=== PATIENT | female | born 1990 | race Caucasian/White ===

== ENCOUNTER 2017-01-14 03:40 | Inpatient (IN) | payer BC ==
[2017-01-14] MEDS ORDERED: Nalbuphine 10 MG/1 ML Vial IVPUSH PRN (03:58)
[2017-01-14] MEDS ORDERED: Carboprost Tromethamine 250 MCG/1 ML Amp IM PRN (03:58)
[2017-01-14] MEDS ORDERED: Methylergonovine 0.2 MG/1 ML Amp IM PRN ×2 (03:58→13:10)
[2017-01-14] MEDS ORDERED: Misoprostol 200 MCG Tab PO PRN (03:58)
[2017-01-14] MEDS ORDERED: Sodium Chloride 0.9% 10 ML Syringe FLUSH PRN (03:58)
[2017-01-14] MEDS ORDERED: Sodium Chloride 0.9% 2.5 ML Syringe FLUSH PRN (03:58)
[2017-01-14] MEDS ORDERED: Lidocaine 1% 50 ML MDV INJECT PRN (03:58)
[2017-01-14] MEDS ORDERED: Butorphanol 1 MG/ML SDV IVPUSH PRN (03:58)
[2017-01-14] MEDS ORDERED: Water For Irrigation,Sterile 1,000 ML Container IRR PRN (03:58)
[2017-01-14] MEDS ORDERED: Oxytocin/Lactated Ringers 30 UNIT/500 ML BAG IV SCH ×2 (04:00→08:45)
[2017-01-14] MEDS: Lactated Ringers 1,000 ML IV SCH ×4 (04:10→11:41)
[2017-01-14] MEDS ORDERED: Ropivacaine 0.2% 2 MG/ML 20 ML SDV ONE (05:03)
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
[2017-01-14] MEDS ORDERED: Terbutaline 1 MG/ML SDV SUBCUT PRN (08:37)
[2017-01-14] MEDS ORDERED: Benzocaine/Menthol 20%-0.5% Spray 78 GM Cannister TOP PRN (13:10)
[2017-01-14] MEDS ORDERED: Docusate Sodium 100 MG Cap PO PRN (13:10)
[2017-01-14] MEDS ORDERED: Ibuprofen 800 MG Tab PO PRN (13:10)
[2017-01-14] MEDS ORDERED: Bisacodyl 10 MG Supp RECTAL PRN (13:10)
[2017-01-14] MEDS ORDERED: oxyCODONE 5 MG Tab PO PRN (13:10)
[2017-01-14] MEDS ORDERED: Witch Hazel Medicated Pads 40/Jar TOP PRN (13:10)
[2017-01-14] MEDS ORDERED: Lanolin 100% Cream 7 GM Tube TOP PRN (13:10)
[2017-01-14] MEDS: Acetaminophen 500 MG Tab PO PRN ×2 (15:40→20:45)
--- NOTE | 2017-01-14 16:06 | PCM48HPAN ---
Post Anesthesia Note - EVALUATION WITHIN 48HRS OF ANESTHETIC Vital Signs in Normal Range: Yes Patient Participated in Evaluation: Yes Respiratory Function Stable: Yes Airway Patent: Yes Cardiovascular Function Stable: Yes Hydration Status Stable: Yes Pain Control Satisfactory: Yes Nausea and Vomiting Control Satisfactory: Yes Mental Status Recovered: Yes - COMMENTS/OBSERVATIONS Free Text/Narrative:: No apparent anesthesia complications.
--- NOTE | 2017-01-14 23:32 | OR ---
SURGEON: Ashly Vu M.D. DATE OF PROCEDURE: 01/14/2017 PREOPERATIVE DIAGNOSIS: A 40 and 3/7th week intrauterine , active spontaneous labor protracted. POSTOPERATIVE DIAGNOSIS: A 40 and 3/7th week intrauterine , active spontaneous labor protracted. PROCEDURE: Pitocin augmentation of labor, term spontaneous vaginal delivery. CASING RUNNER: Stas Carcamo MS4. ANESTHESIA: Epidural. ESTIMATED BLOOD LOSS: Less than 300 mL. FINDINGS: Live born female, score 8 and 9. Weight is pending at the time of dictation. Placenta was delivered spontaneously, Schultze intact with 3 vessels. Perineum intact. BRIEF HISTORY: This is a 26-year-old female she is G3, P2-0-0-2, she presents at 40 and 3/7th weeks' gestation in active spontaneous labor. She was 6 cm dilated at 6:30 a.m. She had artificial rupture of membranes, white meconium noted. 2 hours later, her cervix was unchanged, therefore Pitocin was initiated up to a maximum of 8 units/minute. Category 1 heart tones were noted throughout labor. She progressed to 9+ cm with a reducible lip. DESCRIPTION OF PROCEDURE: With the patient in dorsal lithotomy position, under adequate epidural analgesia, the lip was reduced. The patient began to push. The fetus was noted to be in the right occiput posterior position and gentle manual rotation was performed with a single contraction. The head was easily rotated to right occiput anterior position. She continued to push to a 3+ station. At this time, the table was set up and she pushed over another 3 contractions to a 5+ station, at which time the head was delivered spontaneously and atraumatically over the perineum with support with subsequent delivery of the infant's shoulders and body without any difficulty. The infant was cleaned and dried and handed to the mother [id number] in the presence of the nurse attending delivery. The was a liveborn female, 's 8 and 9. Weight is pending at the time of dictation. After the cord had ceased to pulsate it was doubly clamped and cut. Cord blood was collected for cord ABGs as well as routine cord blood sampling. The placenta was delivered spontaneously, Schultze intact with 3 vessels with Pitocin initiated after delivery of the infant to assist with delivery of the placenta. Upon inspection of the pelvis and perineum, there were no periurethral, vaginal sidewall, cervical, rectal, or perineal lacerations. EBL was less than 200 mL. There were no known complications. Mother and are in LDRP in good condition. SHAAN WHITLEY /[id number]
[2017-01-15 04:18] VITALS: BP 110/61
[2017-01-15] MEDS: Acetaminophen 500 MG Tab PO PRN ×2 (04:32→13:24)
--- NOTE | 2017-01-15 07:45 | PCM.PN ---
- General Info Date of Service: 01/15/17 Admission Dx/Problem (Free Text): Spontaneous onset of labor Subjective Update: This is a 26 year old female, G3 now P3, on day 1 after . Patient has decreasing non foul smelling lochia. Patient has had abdominal pain radiating down her legs but is now controlled with Tylenol. Patient is without problems. Pt has urinated without difficulty. Patient has not had a bowel movement since delivery. - Review of Systems Gastrointestinal: Reports: Abdominal Pain - Patient Data Vitals - Most Recent: Last Vital Signs Temp 36.2 C 01/15/17 04:00 Pulse 64 01/15/17 04:00 Resp 18 01/15/17 04:00 BP 110/61 01/15/17 04:00 Pulse Ox 96 01/15/17 04:00 Weight - Most Recent: 55.429 kg Lab Results Last 24 Hours: Laboratory Results - last 24 hr 01/15/17 Range/Units 04:53 Hgb 11.4 L (12.0-16.0) g/dL Hct 33.8 L (36.0-46.0) % Med Orders - Current: Current Medications Acetaminophen (Tylenol Extra Strength) 1,000 mg PO Q4H PRN PRN Reason: Pain Last Admin: 01/15/17 04:32 Dose: 1,000 mg Benzocaine/Menthol (Dermoplast Pain Relief 20%-0.5% Gary) 78 gm TOP ASDIRECTED PRN PRN Reason: Perineal Comfort Measure Bisacodyl (Dulcolax) 10 mg RECTAL .ONCE PRN PRN Reason: Constipation Docusate Sodium (Colace) 100 mg PO BID PRN PRN Reason: Constipation Emollient Ointment (Lansinoh Hpa) 0 gm TOP ASDIRECTED PRN PRN Reason: Sore Nipples Last Admin: 01/14/17 15:41 Dose: 1 applic Ibuprofen (Motrin) 800 mg PO Q6H PRN PRN Reason: Pain Methylergonovine Maleate (Methergine) 0.2 mg IM .ONCE PRN PRN Reason: Excessive Vaginal Bleeding Oxycodone HCl (Oxycodone) 5 mg PO Q2H PRN PRN Reason: Pain Witch Yamilex (Tucks) 1 pad TOP ASDIRECTED PRN PRN Reason: comfort care Discontinued Medications Butorphanol Tartrate (Stadol) 1 mg IVPUSH Q1H PRN PRN Reason: Pain Carboprost Tromethamine (Hemabate Ds) 250 mcg IM ASDIRECTED PRN PRN Reason: Post Hemorrhage Lactated Ringer's (Ringers, Lactated) 1,000 mls @ 150 mls/hr IV ASDIRECTED JOSE LUIS Last Admin: 01/14/17 11:41 Dose: 125 mls/hr Oxytocin/Lactated Ringer's (Pitocin In Lr 30 Units/500 Ml) 30 unit in 500 mls @ 250 mls/hr IV TITRATE JOSE LUIS PRN Reason: 250 MUNITS/MIN Stop: 01/14/17 05:59 Ropivacaine/Fentanyl/NS (Fentanyl 2 Mcg-Ropiv 0.2%-Ns) Confirm Administered Dose 100 mls @ as directed .ROUTE .[employer] ONE Stop: 01/14/17 05:04 Oxytocin/Lactated Ringer's (Pitocin In Lr 30 Units/500 Ml) 30 unit in 500 mls @ 2 mls/hr IV TITRATE JOSE LUIS; 2 MUNITS/MIN PRN Reason: Protocol Last Titration: 01/14/17 09:51 Dose: 6 munits/min, 6 mls/hr Lidocaine HCl (Xylocaine 1%) 50 ml INJECT .ONCE PRN PRN Reason: Laceration repair Methylergonovine Maleate (Methergine) 0.2 mg IM ASDIRECTED PRN PRN Reason: Post Hemorrhage Misoprostol (Cytotec) 200 mcg PO .ONCE PRN PRN Reason: Post Hemorrhage Nalbuphine HCl (Nubain) 10 mg IVPUSH Q1H PRN PRN Reason: Pain (severe 7-10) Ropivacaine (Naropin 0.2%) Confirm Administered Dose [facility] Stop: 01/14/17 05:04 Sodium Chloride (Saline Flush) 10 ml FLUSH ASDIRECTED PRN PRN Reason: Keep Vein Open Sodium Chloride (Saline Flush) 2.5 ml FLUSH ASDIRECTED PRN PRN Reason: Keep Vein Open Sterile Water (Sterile Water For Irrigation) 1,000 ml IRR ASDIRECTED PRN PRN Reason: delivery Terbutaline Sulfate (Brethine) 0.25 mg SUBCUT ASDIRECTED PRN PRN Reason: Tacysystole - Exam General: Alert, Oriented Lungs: Clear to Auscultation, Normal Respiratory Effort. No: Crackles, Rales, Rhonchi Cardiovascular: Regular Rate, Regular Rhythm, No Murmurs. No: Gallops, Rubs GI/Abdominal Exam: Normal Bowel Sounds (Uterus below umbilicus, tender, firm) Extremities: No Pedal Edema, Normal Capillary Refill - Problem List & Annotations (1) (normal spontaneous vaginal delivery) SNOMED Code(s): 13095593 Code(s): O80 - ENCOUNTER FOR FULL-TERM UNCOMPLICATED DELIVERY Status: Resolved Priority: High Current Visit: Yes Onset Date: ~01/14/17 - Problem List Review Problem List Initiated/Reviewed/Updated: Yes - Assessment Assessment:: day 1 S/P Afebrile, doing well without difficulty Pain adequately controlled Constipation consistent with PP day 1 - Plan Plan:: Continue to support Continue routine cares Constipation Colace 100mg PO bid prn Pain Tylenol 1000 mg PO q 6 hours prn Plan for discharge today. Followup appointment in 6 weeks
== END 2017-01-15 16:10 | disposition home or self-care (01) | DRG 560 ==
LOC: MW.OBCHECK 03:40 → MW.OB 03:42 → MW.OBCHECK 03:58 → MW.OB 03:58 → OBSVTOIN 12:55
PROVIDERS: ADMIT Obstetrics & Gynecology; ATTEND Obstetrics & Gynecology
PROC: 10E0XZZ Delivery of Products of Conception, External Approach (ICD-10-PCS; principal; 2017-01-14)
PROC: 10907ZC Drainage of Amniotic Fluid, Therapeutic from Products of Conception, Via Natural or Artificial Opening (ICD-10-PCS; 2017-01-14)
DX: O63.9 Long labor, unspecified (principal); Z3A.40 40 weeks gestation of pregnancy; Z37.0 Single live birth
CPT/HCPCS: 36415; 59025; 85014; 85018; 85027; 86850; 86900; 86901; A9270-GY; J7120

== ENCOUNTER 2023-03-04 20:58 | Emergency (ER) | payer BC ==
[2023-03-04] MEDS ORDERED: Ketorolac 30 MG/ML SDV IVPUSH ONE (21:45)
[2023-03-04 21:49] LABS: BASOPHILS ABSOLUTE AUTO 0.01 K/uL (0.00-0.20); BASOPHILS PERCENT AUTO 0.1 % (0.0-1.0); EOSINOPHILS ABSOLUTE AUTO 0.04 K/uL (0.00-0.45); EOSINOPHILS PERCENT AUTO 0.5 % (0.0-6.0); HEMATOCRIT 37.2 % (37.0-47.0); HEMOGLOBIN 12.8 g/dL (12.0-16.0); IMMATURE GRAN ABSOLUTE AUTO 0.02 K/uL (0.00-0.05); IMMATURE GRAN PERCENT AUTO 0.3 % (0.0-0.4); LYMPHOCYTES ABSOLUTE AUTO 0.98 K/uL (1.00-4.80); LYMPHOCYTES PERCENT AUTO 12.4 % (24.0-44.0); MEAN CORPUSCULAR HEMOGLOBIN 31.1 pg (28.0-32.0); MEAN CORPUSCULAR HGB CONC 34.4 g/dL (32.0-36.0); MEAN CORPUSCULAR VOLUME 90.5 fL (83.0-99.0); MEAN PLATELET VOLUME 9.7 fL (9.4-12.3); MONOCYTES ABSOLUTE AUTO 0.31 K/uL (0.00-0.80); MONOCYTES PERCENT AUTO 3.9 % (0.0-8.0); NEUTROPHILS ABSOLUTE AUTO 6.57 K/uL (1.80-7.70); NEUTROPHILS PERCENT AUTO 82.8 % (41.0-71.0); PLATELET COUNT,PLT 308 K/uL (150-400); RED BLOOD CELL COUNT 4.11 M/uL (4.10-5.30); WHITE BLOOD CELL COUNT,WBC 7.93 K/uL (3.9-11.3)
[2023-03-04 21:59] LABS: A/G RATIO 1.3 (0.9-1.6); ALBUMIN 4.1 g/dL (3.4-5.0); BILIRUBIN TOTAL 0.3 mg/dL (0.2-1.0); CALCIUM 9.1 mg/dL (8.5-10.1); CARBON DIOXIDE,CO2 29.7 mmol/L (21.0-32.0); EST CRCL DRUG DOSING (CG) 60.95 mL/min; PROTEIN TOTAL,TP 7.2 g/dL (6.4-8.2)
[2023-03-04 22:31] LABS: APPEARANCE,URINE CLEAR; BILIRUBIN,URINE NEGATIVE (NEGATIVE); COLOR,URINE YELLOW; GLUCOSE,URINE NEGATIVE (NEGATIVE); KETONES,URINE NEGATIVE (NEGATIVE); LEUKOCYTE ESTERASE,URINE NEGATIVE (NEGATIVE); NITRITE,URINE NEGATIVE (NEGATIVE); OCCULT BLOOD,URINE NEGATIVE (NEGATIVE); PROTEIN,URINE NEGATIVE (NEGATIVE); UROBILINOGEN,URINE 0.2 EU/dL (<2.0)
[2023-03-04 22:52] VITALS: BP 123/64; PULSE 78
== END 2023-03-04 22:51 | disposition home or self-care (01) ==
LOC: MW.ED 20:58
DX: R10.84 Generalized abdominal pain (principal); R10.10 Upper abdominal pain, unspecified
CPT/HCPCS: 36415; 80053; 81003; 81025; 83690; 85025; 96374; 99284; J1885

== ENCOUNTER 2023-10-21 17:38 | Emergency (ER) | payer BC ==
[2023-10-21] MEDS: Metoclopramide 10 MG/2 ML SDV IVPUSH ONE (18:49)
[2023-10-21] MEDS: Sodium Chloride 0.9% 1,000 ML IV ONE (18:49)
[2023-10-21 19:48] VITALS: BP 131/96; PULSE 62
== END 2023-10-21 19:48 | disposition home or self-care (01) ==
LOC: MW.ED 17:38
DX: K52.9 Noninfective gastroenteritis and colitis, unspecified (principal); E86.0 Dehydration; Z79.899 Other long term (current) drug therapy; Z75.8 Other problems related to medical facilities and other health care
CPT/HCPCS: 96361; 96374; 99283; J2765; J7030; 36415; 80053; 81003; 81025; 82150; 83690; 85025; 99284

== ENCOUNTER 2023-10-22 00:32 | Emergency (ER) | payer BC ==
[2023-10-22] MEDS: diphenhydrAMINE 50 MG/ML SDV IVPUSH ONE (00:52)
[2023-10-22] MEDS: Ondansetron 4 MG/2 ML SDV IVPUSH ONE (00:52)
[2023-10-22] MEDS: Sodium Chloride 0.9% 1,000 ML IV ONE (00:52)
[2023-10-22] MEDS: Iopamidol 755 MG/ML 500 ML Multipack Bottle IVPUSH ONE (01:46)
[2023-10-22] MEDS: Metoclopramide 10 MG/2 ML SDV IVPUSH ONE (02:00)
[2023-10-22 02:26] VITALS: BP 125/71; PULSE 60
== END 2023-10-22 02:27 | disposition home or self-care (01) ==
LOC: MW.ED 00:32
DX: R11.2 Nausea with vomiting, unspecified (principal); R19.7 Diarrhea, unspecified; Z79.899 Other long term (current) drug therapy; Z75.8 Other problems related to medical facilities and other health care
CPT/HCPCS: 74177; 96361; 96374; 96375; 99284; J1200; J2405; J2765; J7030; Q9967

== ENCOUNTER 2023-10-28 11:10 | Emergency (ER) | payer BC ==
[2023-10-28 11:59] LABS: HEMATOCRIT 41.4 % (37.0-47.0); HEMOGLOBIN 14.6 g/dL (12.0-16.0); IMMATURE GRAN ABSOLUTE AUTO 0.06 K/uL (0.00-0.05); IMMATURE GRAN PERCENT AUTO 0.4 % (0.0-0.4); LYMPHOCYTES ABSOLUTE AUTO 1.19 K/uL (1.00-4.80); LYMPHOCYTES PERCENT AUTO 8.8 % (24.0-44.0); MEAN CORPUSCULAR HEMOGLOBIN 32.2 pg (28.0-32.0); MEAN CORPUSCULAR HGB CONC 35.3 g/dL (32.0-36.0); MEAN CORPUSCULAR VOLUME 91.2 fL (83.0-99.0); MEAN PLATELET VOLUME 8.5 fL (9.4-12.3); MONOCYTES ABSOLUTE AUTO 0.63 K/uL (0.00-0.80); MONOCYTES PERCENT AUTO 4.7 % (0.0-8.0); NEUTROPHILS ABSOLUTE AUTO 11.61 K/uL (1.80-7.70); NEUTROPHILS PERCENT AUTO 86.1 % (41.0-71.0); PLATELET COUNT,PLT 338 K/uL (150-400); RED BLOOD CELL COUNT 4.54 M/uL (4.10-5.30); WHITE BLOOD CELL COUNT,WBC 13.49 K/uL (3.9-11.3)
[2023-10-28 12:19] LABS: A/G RATIO 1.2 (0.9-1.6); ALBUMIN 4.1 g/dL (3.4-5.0); BILIRUBIN TOTAL 0.4 mg/dL (0.2-1.0); CALCIUM 8.9 mg/dL (8.5-10.1); CARBON DIOXIDE,CO2 23.8 mmol/L (21.0-32.0); CREATININE 0.8 mg/dL (0.6-1.0); EST CRCL DRUG DOSING (CG) 75.48 mL/min; POTASSIUM,K 3.6 mmol/L (3.5-5.1); PROTEIN TOTAL,TP 7.4 g/dL (6.4-8.2)
[2023-10-28] MEDS: Albuterol/Ipratropium 3.0-0.5 MG/3 ML Neb Soln NEB ONE (12:44)
[2023-10-28] MEDS: Sodium Chloride 0.9% 1,000 ML IV SCH (12:44)
[2023-10-28] MEDS: Pantoprazole 40 MG in Sodium Chloride 0.9% 10 ML IVPUSH ONE (12:44)
[2023-10-28] MEDS: Ondansetron 4 MG/2 ML SDV IVPUSH ONE (12:44)
[2023-10-28] MEDS: Iopamidol 755 MG/ML 500 ML Multipack Bottle IVPUSH STA (13:31)
[2023-10-28] MEDS: Metoclopramide 10 MG/2 ML SDV IVPUSH ONE (13:33)
[2023-10-28] MEDS: diphenhydrAMINE 50 MG/ML SDV IVPUSH ONE (13:33)
[2023-10-28] MEDS: Sucralfate Suspension 1 GM/10 ML Cup PO ONE (14:53)
[2023-10-28] MEDS: Midazolam 1 MG/ML 2 ML SDV IVPUSH ONE (14:53)
[2023-10-28 15:32] VITALS: BP 128/72; PULSE 86
== END 2023-10-28 15:31 | disposition home or self-care (01) ==
LOC: MW.ED 11:10
DX: K29.70 Gastritis, unspecified, without bleeding (principal); Z79.899 Other long term (current) drug therapy; F17.210 Nicotine dependence, cigarettes, uncomplicated
CPT/HCPCS: 36415; 71275; 74177; 80053; 83690; 84484; 84703; 85025; 85379; 93005; 94640; 96361; 96374; 96375; 99285; A9270; C9113; J1200; J2250; J2405; J2765; J3490; J7030; Q9967; 99284; J7620-GY

== ENCOUNTER 2024-02-04 12:55 | Emergency (ER) | payer BC, MEDICAID ==
[2024-02-04] MEDS ORDERED: Sodium Chloride 0.9% 2.5 ML Syringe FLUSH PRN (13:32)
[2024-02-04] MEDS ORDERED: Sodium Chloride 0.9% 10 ML Syringe FLUSH PRN (13:32)
[2024-02-04] MEDS: Sodium Chloride 0.9% 1,000 ML IV ONE ×2 (13:36→14:49)
[2024-02-04 13:39] LABS: BASOPHILS ABSOLUTE AUTO 0.01 K/uL (0.00-0.20); BASOPHILS PERCENT AUTO 0.1 % (0.0-1.0); HEMATOCRIT 43.5 % (37.0-47.0); HEMOGLOBIN 15.1 g/dL (12.0-16.0); IMMATURE GRAN ABSOLUTE AUTO 0.02 K/uL (0.00-0.05); IMMATURE GRAN PERCENT AUTO 0.2 % (0.0-0.4); LYMPHOCYTES ABSOLUTE AUTO 1.36 K/uL (1.00-4.80); LYMPHOCYTES PERCENT AUTO 13.9 % (24.0-44.0); MEAN CORPUSCULAR HGB CONC 34.7 g/dL (32.0-36.0); MEAN CORPUSCULAR VOLUME 92.2 fL (83.0-99.0); MEAN PLATELET VOLUME 8.4 fL (9.4-12.3); MONOCYTES ABSOLUTE AUTO 0.41 K/uL (0.00-0.80); MONOCYTES PERCENT AUTO 4.2 % (0.0-8.0); NEUTROPHILS ABSOLUTE AUTO 7.95 K/uL (1.80-7.70); NEUTROPHILS PERCENT AUTO 81.6 % (41.0-71.0); PLATELET COUNT,PLT 361 K/uL (150-400); RED BLOOD CELL COUNT 4.72 M/uL (4.10-5.30); WHITE BLOOD CELL COUNT,WBC 9.75 K/uL (3.9-11.3)
[2024-02-04 13:41] LABS: BILIRUBIN,URINE NEGATIVE (NEGATIVE); COLOR,URINE YELLOW; GLUCOSE,URINE NEGATIVE (NEGATIVE); KETONES,URINE TRACE mg/dL (NEGATIVE); LEUKOCYTE ESTERASE,URINE SMALL (NEGATIVE); NITRITE,URINE POSITIVE (NEGATIVE); OCCULT BLOOD,URINE MODERATE (NEGATIVE); PROTEIN,URINE TRACE mg/dL (NEGATIVE); UROBILINOGEN,URINE 0.2 EU/dL (<2.0)
[2024-02-04 13:50] LABS: A/G RATIO 1.1 (0.9-1.6); ALBUMIN 3.9 g/dL (3.4-5.0); BILIRUBIN TOTAL 0.8 mg/dL (0.2-1.0); CALCIUM 8.7 mg/dL (8.5-10.1); CARBON DIOXIDE,CO2 22.4 mmol/L (21.0-32.0); CREATININE 1.1 mg/dL (0.6-1.0); EST CRCL DRUG DOSING (CG) 54.89 mL/min; POTASSIUM,K 3.7 mmol/L (3.5-5.1); PROTEIN TOTAL,TP 7.6 g/dL (6.4-8.2)
[2024-02-04 13:55] LABS: APPEARANCE,URINE SLT CLOUDY
[2024-02-04 13:57] LABS: AMPHETAMINES SCREEN, URINE PRESUMPTIVE POSITIVE (CUTOFF=500); BARBITURATE SCREEN,URINE NEGATIVE (CUTOFF=200); BENZODIAZEPINES SCREEN,URINE NEGATIVE (CUTOFF=150); BUPRENORPHINE SCREEN,URINE NEGATIVE (CUTOFF=10); METHADONE SCREEN, URINE NEGATIVE (CUTOFF=200); METHAMPHETAMINES SCREEN, URINE NEGATIVE (CUTOFF=500); OXYCODONE SCREEN,URINE NEGATIVE (CUT0FF=100); PCP SCREEN,URINE NEGATIVE (CUTOFF=25); THC SCREEN,URINE 20 NG/ML NEGATIVE (CUTOFF=50)
[2024-02-04 13:58] LABS: BACTERIA,URINE 4+ (NEGATIVE); EPITHELIAL CELLS,URINE MODERATE (NONE-FEW)
[2024-02-04] MEDS: cefTRIAXone 1 GM in Sodium Chloride 0.9% 50 ML IV ONE (14:49)
[2024-02-04 15:20] VITALS: BP 124/64; PULSE 81
== END 2024-02-04 15:19 | disposition home or self-care (01) ==
LOC: MW.ED 12:55
DX: R00.0 Tachycardia, unspecified (principal); N39.0 Urinary tract infection, site not specified; Z75.8 Other problems related to medical facilities and other health care
CPT/HCPCS: 36415; 80053; 80305; 80307; 81001; 81025; 83690; 85025; 87086; 96361; 96365; 99285; J0696; J3490; J7030; 93010; 99283

== ENCOUNTER 2024-07-08 17:36 | Inpatient (IN) | payer BC ==
[2024-07-08 17:56] LABS: BASOPHILS ABSOLUTE AUTO 0.01 K/uL (0.00-0.20); BASOPHILS PERCENT AUTO 0.1 % (0.0-1.0); HEMATOCRIT 45.1 % (37.0-47.0); HEMOGLOBIN 16.3 g/dL (12.0-16.0); IMMATURE GRAN ABSOLUTE AUTO 0.12 K/uL (0.00-0.05); LYMPHOCYTES ABSOLUTE AUTO 0.29 K/uL (1.00-4.80); LYMPHOCYTES PERCENT AUTO 2.5 % (24.0-44.0); MEAN CORPUSCULAR HEMOGLOBIN 32.5 pg (28.0-32.0); MEAN CORPUSCULAR HGB CONC 36.1 g/dL (32.0-36.0); MONOCYTES ABSOLUTE AUTO 0.47 K/uL (0.00-0.80); NEUTROPHILS ABSOLUTE AUTO 10.77 K/uL (1.80-7.70); NEUTROPHILS PERCENT AUTO 92.4 % (41.0-71.0); PLATELET COUNT,PLT 202 K/uL (150-400); RED BLOOD CELL COUNT 5.01 M/uL (4.10-5.30); WHITE BLOOD CELL COUNT,WBC 11.66 K/uL (3.9-11.3)
[2024-07-08] MEDS: Lactated Ringers 1,000 ML IV ONE (18:15)
[2024-07-08] MEDS: Ondansetron 4 MG/2 ML SDV IVPUSH ONE ×3 (18:16→21:25)
[2024-07-08] MEDS: Morphine 4 MG/ML Syringe IVPUSH ONE ×3 (18:16→21:26)
[2024-07-08 18:23] LABS: ALANINE AMINOTRANSFERASE,ALT 93 IU/L (14-63); ALBUMIN 3.7 g/dL (3.4-5.0); ALKALINE PHOSPHATASE 101 U/L (46-116); ASPARTATE AMNIOTRANSFERASE,AST 84 IU/L (15-37); BILIRUBIN TOTAL 1.6 mg/dL (0.2-1.0); BLOOD UREA NITROGEN,BUN 23 mg/dL (7.0-18.0); CALCIUM 9.8 mg/dL (8.5-10.1); CARBON DIOXIDE,CO2 25.9 mmol/L (21.0-32.0); CHLORIDE,CL 86 mmol/L (98-107); CREATININE 1.3 mg/dL (0.6-1.0); GLUCOSE RANDOM 292 mg/dL (74-106); PROTEIN TOTAL,TP 7.3 g/dL (6.4-8.2); SODIUM,NA 127 mmol/L (136-145)
[2024-07-08 18:25] LABS: ESTIMATED GFR 56 mL/min (>60)
[2024-07-08 18:44] LABS: LIPASE 1196 U/L (16-77)
[2024-07-08 18:51] LABS: PH,VENOUS 7.53 (7.31-7.41)
[2024-07-08] MEDS: Sodium Chloride 0.9% 10 ML Syringe FLUSH PRN (19:00)
[2024-07-08] MEDS: Sodium Chloride 0.9% 2.5 ML Syringe FLUSH PRN (19:00)
[2024-07-08] MEDS: Sodium Chloride 0.9% 1,000 ML IV ONE (19:53)
[2024-07-08 19:55] LABS: COLOR,URINE YELLOW; GLUCOSE,URINE 250 mg/dL (NEGATIVE); KETONES,URINE >=80 mg/dL (NEGATIVE); LEUKOCYTE ESTERASE,URINE NEGATIVE (NEGATIVE); NITRITE,URINE POSITIVE (NEGATIVE); OCCULT BLOOD,URINE LARGE (NEGATIVE); PROTEIN,URINE >=300 mg/dL (NEGATIVE)
[2024-07-08 19:56] LABS: APPEARANCE,URINE CLOUDY; BILIRUBIN,URINE SMALL (NEGATIVE)
[2024-07-08 20:02] LABS: BACTERIA,URINE 3+ (NEGATIVE); EPITHELIAL CELLS,URINE MODERATE (NONE-FEW); RBC,URINE 20-30 (0-2/HPF)
[2024-07-08] MEDS: Iopamidol 755 MG/ML 500 ML Multipack Bottle IVPUSH ONE (20:27)
[2024-07-08] MEDS: cefTRIAXone 1 GM in Sodium Chloride 0.9% 50 ML IV ONE (21:52)
[2024-07-08] MEDS ORDERED: Naloxone 0.4 MG/ML SDV IVPUSH PRN (22:28)
[2024-07-08] MEDS ORDERED: cloNIDine 0.1 MG Tab PO PRN (22:35)
[2024-07-08] MEDS: HYDROmorphone 1 MG/ML Syringe IVPUSH PRN (22:58)
[2024-07-08] MEDS: Sodium Chloride 0.9% 1,000 ML IV SCH (23:37)
[2024-07-09] MEDS ORDERED: LORazepam 2 MG/ML SDV IVPUSH PRN (00:04)
[2024-07-09] MEDS ORDERED: 50% Dextrose in Water 50 ML Syringe IVPUSH PRN (00:09)
[2024-07-09] MEDS ORDERED: Glucagon,Human Recombinant 1 MG Vial IM PRN (00:09)
[2024-07-09] MEDS: Thiamine 200 MG/2 ML MDV IVPUSH SCH (00:31)
[2024-07-09] MEDS: Pantoprazole 40 MG in Sodium Chloride 0.9% 10 ML IVPUSH SCH ×2 (00:31→21:16)
[2024-07-09] MEDS: Folic Acid 1 MG/0.2 ML UD Syringe IV SCH (00:32)
[2024-07-09] MEDS: Insulin Aspart 100 Units/ML 3 ML Pen SUBCUT SCH (00:40)
[2024-07-09] MEDS: Folic Acid 1 MG/0.2 ML UD Syringe SUBCUT SCH (01:01)
[2024-07-09 05:53] LABS: BASOPHILS ABSOLUTE AUTO 0.01 K/uL (0.00-0.20); BASOPHILS PERCENT AUTO 0.1 % (0.0-1.0); HEMOGLOBIN 13.1 g/dL (12.0-16.0); LYMPHOCYTES ABSOLUTE AUTO 0.42 K/uL (1.00-4.80); LYMPHOCYTES PERCENT AUTO 4.3 % (24.0-44.0); MEAN CORPUSCULAR HEMOGLOBIN 32.8 pg (28.0-32.0); MEAN CORPUSCULAR HGB CONC 35.4 g/dL (32.0-36.0); MEAN CORPUSCULAR VOLUME 92.7 fL (83.0-99.0); MEAN PLATELET VOLUME 9.5 fL (9.4-12.3); MONOCYTES PERCENT AUTO 5.1 % (0.0-8.0); NEUTROPHILS ABSOLUTE AUTO 8.82 K/uL (1.80-7.70); NEUTROPHILS PERCENT AUTO 89.5 % (41.0-71.0); PLATELET COUNT,PLT 156 K/uL (150-400); RED BLOOD CELL COUNT 3.99 M/uL (4.10-5.30); WHITE BLOOD CELL COUNT,WBC 9.85 K/uL (3.9-11.3)
[2024-07-09 06:13] LABS: BILIRUBIN TOTAL 1.2 mg/dL (0.2-1.0); CALCIUM 8.2 mg/dL (8.5-10.1); CREATININE 0.8 mg/dL (0.6-1.0); EST CRCL DRUG DOSING (CG) 93.63 mL/min; POTASSIUM,K 4.1 mmol/L (3.5-5.1); PROTEIN TOTAL,TP 5.9 g/dL (6.4-8.2)
[2024-07-09] MEDS: Ondansetron 4 MG/2 ML SDV IVPUSH PRN (07:42)
[2024-07-09] MEDS: cefTRIAXone 1 GM in Sodium Chloride 0.9% 50 ML IV SCH (21:20)
[2024-07-10 06:23] LABS: EOSINOPHILS ABSOLUTE AUTO 0.02 K/uL (0.00-0.45); EOSINOPHILS PERCENT AUTO 0.2 % (0.0-6.0); HEMATOCRIT 30.6 % (37.0-47.0); HEMOGLOBIN 10.1 g/dL (12.0-16.0); IMMATURE GRAN ABSOLUTE AUTO 0.03 K/uL (0.00-0.05); IMMATURE GRAN PERCENT AUTO 0.4 % (0.0-0.4); LYMPHOCYTES ABSOLUTE AUTO 0.94 K/uL (1.00-4.80); LYMPHOCYTES PERCENT AUTO 11.1 % (24.0-44.0); MEAN CORPUSCULAR HEMOGLOBIN 32.4 pg (28.0-32.0); MEAN CORPUSCULAR VOLUME 98.1 fL (83.0-99.0); MEAN PLATELET VOLUME 10.1 fL (9.4-12.3); MONOCYTES ABSOLUTE AUTO 0.62 K/uL (0.00-0.80); MONOCYTES PERCENT AUTO 7.3 % (0.0-8.0); NEUTROPHILS ABSOLUTE AUTO 6.88 K/uL (1.80-7.70); PLATELET COUNT,PLT 109 K/uL (150-400); RED BLOOD CELL COUNT 3.12 M/uL (4.10-5.30); WHITE BLOOD CELL COUNT,WBC 8.49 K/uL (3.9-11.3)
[2024-07-10 06:56] LABS: A/G RATIO 0.9 (0.9-1.6); ALBUMIN 2.3 g/dL (3.4-5.0); BILIRUBIN TOTAL 0.7 mg/dL (0.2-1.0); CALCIUM 7.8 mg/dL (8.5-10.1); CARBON DIOXIDE,CO2 25.6 mmol/L (21.0-32.0); CREATININE 0.6 mg/dL (0.6-1.0); EST CRCL DRUG DOSING (CG) 124.85 mL/min; MAGNESIUM 1.2 mg/dL (1.8-2.4); POTASSIUM,K 3.2 mmol/L (3.5-5.1); PROTEIN TOTAL,TP 4.9 g/dL (6.4-8.2)
[2024-07-10] MEDS: Potassium Chloride 20 MEQ Tab.ER PO SCH (08:48)
[2024-07-10] MEDS: Magnesium Sulf/Wat 4 GM/100 mL 4 GM in Premix Bag 1 BAG IV ONE (08:48)
[2024-07-10] MEDS ORDERED: Potassium Chloride 10% 20 MEQ/15 ML Soln 15 ML UD Cup PO SCH (09:00)
[2024-07-10] MEDS: NS with KCl 40mEq 1,000 ML IV ONE (11:44)
[2024-07-10] MEDS: oxyCODONE 5 MG Tab PO PRN (13:53)
[2024-07-10 19:05] VITALS: BP 139/93; PULSE 88
== END 2024-07-10 19:06 | disposition home or self-care (01) | DRG 282 ==
LOC: MW.ED 17:36 → MW.MS 21:36
PROVIDERS: ADMIT Internal Medicine; ATTEND Internal Medicine
DX: K85.20 Alcohol induced acute pancreatitis without necrosis or infection (principal); N39.0 Urinary tract infection, site not specified; E87.1 Hypo-osmolality and hyponatremia; F10.10 Alcohol abuse, uncomplicated; E87.6 Hypokalemia; E83.42 Hypomagnesemia; F41.9 Anxiety disorder, unspecified; F17.210 Nicotine dependence, cigarettes, uncomplicated; Z90.89 Acquired absence of other organs
CPT/HCPCS: 36415; 74177; 74177-26; 80053; 81001; 81025; 82803; 82947; 83036; 83690; 83735; 84295; 84478; 85025; 87086; 87088; 87186; 96361; 96374; 96375; 96376; 99285-25; A9270-GY; J0696; J1171; J2270; J2405; J2470; J3411; J3475; J3480; J3490; J7030; J7120; Q9967

== ENCOUNTER 2025-01-07 20:53 | Inpatient (IN) | payer BC ==
[2025-01-07] MEDS ORDERED: Sodium Chloride 0.9% 2.5 ML Syringe FLUSH PRN (21:32)
[2025-01-07] MEDS ORDERED: Sodium Chloride 0.9% 10 ML Syringe FLUSH PRN (21:32)
[2025-01-07] MEDS: LORazepam 2 MG/ML SDV IVPUSH ONE ×2 (21:54→23:03)
[2025-01-07 22:01] LABS: BASOPHILS ABSOLUTE AUTO 0.03 K/uL (0.00-0.20); BASOPHILS PERCENT AUTO 0.5 % (0.0-1.0); EOSINOPHILS ABSOLUTE AUTO 0.00 K/uL (0.00-0.45); EOSINOPHILS PERCENT AUTO 0.0 % (0.0-6.0); IMMATURE GRAN ABSOLUTE AUTO 0.01 K/uL (0.00-0.05); IMMATURE GRAN PERCENT AUTO 0.2 % (0.0-0.4); LYMPHOCYTES ABSOLUTE AUTO 0.89 K/uL (1.00-4.80); LYMPHOCYTES PERCENT AUTO 14.9 % (24.0-44.0); MEAN PLATELET VOLUME 8.6 fL (9.4-12.3); MONOCYTES ABSOLUTE AUTO 0.12 K/uL (0.00-0.80); MONOCYTES PERCENT AUTO 2.0 % (0.0-8.0); NEUTROPHILS ABSOLUTE AUTO 4.94 K/uL (1.80-7.70); NEUTROPHILS PERCENT AUTO 82.4 % (41.0-71.0); NRBC ABSOLUTE 0.00 K/uL (0.00-0.02); NRBC PERCENT 0.0 /100WBC (0.0-0.2); PLATELET COUNT,PLT 358 K/uL (150-400); RED BLOOD CELL COUNT 4.89 M/uL (4.10-5.30); WHITE BLOOD CELL COUNT,WBC 5.99 K/uL (3.9-11.3)
[2025-01-07 22:46] LABS: A/G RATIO 1.0 (0.9-1.6); ALANINE AMINOTRANSFERASE,ALT 37.0 IU/L (14-63); ASPARTATE AMNIOTRANSFERASE,AST 34.0 IU/L (15-37); BILIRUBIN TOTAL 0.4 mg/dL (0.2-1.0); BLOOD UREA NITROGEN,BUN 14.0 mg/dL (7.0-18.0); CARBON DIOXIDE,CO2 21.2 mmol/L (21.0-32.0); CHLORIDE,CL 102.0 mmol/L (98-107); CREATINE KINASE,CK 197.0 U/L (26-308); CREATININE 1.0 mg/dL (0.6-1.0); EST CRCL DRUG DOSING (CG) 59.82 mL/min; ESTIMATED GFR 76.0 mL/min (>60); ETHANOL BLOOD MEDICAL 263.0 mg/dL; GLUCOSE RANDOM 108.0 mg/dL (74-106); POTASSIUM,K 4.1 mmol/L (3.5-5.1); PROTEIN TOTAL,TP 7.6 g/dL (6.4-8.2); SODIUM,NA 142.0 mmol/L (136-145)
[2025-01-07 23:04] LABS: APPEARANCE,URINE SLT CLOUDY; GLUCOSE,URINE NEGATIVE (NEGATIVE); OCCULT BLOOD,URINE LARGE (NEGATIVE)
[2025-01-07 23:14] LABS: AMPHETAMINES SCREEN, URINE NEGATIVE (CUTOFF=500); BUPRENORPHINE SCREEN,URINE NEGATIVE (CUTOFF=10); METHADONE SCREEN, URINE NEGATIVE (CUTOFF=200); METHAMPHETAMINES SCREEN, URINE NEGATIVE (CUTOFF=500); OXYCODONE SCREEN,URINE NEGATIVE (CUT0FF=100); PCP SCREEN,URINE NEGATIVE (CUTOFF=25); THC SCREEN,URINE 20 NG/ML NEGATIVE (CUTOFF=50)
[2025-01-07 23:17] LABS: EPITHELIAL CELLS,URINE MANY (NONE-FEW)
[2025-01-07 23:18] LABS: FINE GRANULAR CASTS,URINE RARE (NEGATIVE)
[2025-01-08] MEDS: LORazepam 2 MG/ML SDV IVPUSH ONE (00:05)
[2025-01-08] MEDS: LORazepam 2 MG/ML SDV IVPUSH PRN ×2 (01:21→06:31)
[2025-01-08] MEDS: Thiamine 200 MG/2 ML MDV IVPUSH SCH (01:24)
[2025-01-08] MEDS: Folic Acid 1 MG/0.2 ML UD Syringe IV SCH (01:24)
[2025-01-08] MEDS ORDERED: Sodium Chloride 0.9% 2.5 ML Syringe FLUSH PRN (01:45)
[2025-01-08] MEDS ORDERED: Sodium Chloride 0.9% 10 ML Syringe FLUSH PRN (01:45)
[2025-01-08 06:35] LABS: BASOPHILS ABSOLUTE AUTO 0.02 K/uL (0.00-0.20); BASOPHILS PERCENT AUTO 0.3 % (0.0-1.0); EOSINOPHILS ABSOLUTE AUTO 0.01 K/uL (0.00-0.45); EOSINOPHILS PERCENT AUTO 0.1 % (0.0-6.0); IMMATURE GRAN ABSOLUTE AUTO 0.02 K/uL (0.00-0.05); IMMATURE GRAN PERCENT AUTO 0.3 % (0.0-0.4); LYMPHOCYTES ABSOLUTE AUTO 1.72 K/uL (1.00-4.80); LYMPHOCYTES PERCENT AUTO 23.3 % (24.0-44.0); MEAN PLATELET VOLUME 8.4 fL (9.4-12.3); MONOCYTES ABSOLUTE AUTO 0.52 K/uL (0.00-0.80); MONOCYTES PERCENT AUTO 7.0 % (0.0-8.0); NEUTROPHILS ABSOLUTE AUTO 5.09 K/uL (1.80-7.70); NEUTROPHILS PERCENT AUTO 69.0 % (41.0-71.0); NRBC ABSOLUTE 0.00 K/uL (0.00-0.02); NRBC PERCENT 0.0 /100WBC (0.0-0.2); PLATELET COUNT,PLT 278 K/uL (150-400); RED BLOOD CELL COUNT 4.23 M/uL (4.10-5.30); WHITE BLOOD CELL COUNT,WBC 7.38 K/uL (3.9-11.3)
[2025-01-08 06:55] LABS: BLOOD UREA NITROGEN,BUN 13.0 mg/dL (7.0-18.0); CARBON DIOXIDE,CO2 22.2 mmol/L (21.0-32.0); CHLORIDE,CL 102.0 mmol/L (98-107); CREATININE 0.9 mg/dL (0.6-1.0); EST CRCL DRUG DOSING (CG) 66.46 mL/min; GLUCOSE RANDOM 82.0 mg/dL (74-106); PHOSPHORUS 2.7 mg/dL (2.6-4.7); POTASSIUM,K 4.0 mmol/L (3.5-5.1); SODIUM,NA 138.0 mmol/L (136-145)
[2025-01-08 07:00] LABS: ESTIMATED GFR 86.0 mL/min (>60)
[2025-01-08] MEDS ORDERED: Etonogestrel/Ethinyl Estradiol [Nuvaring Vaginal Ring] VAG SCH (18:45)
[2025-01-09 07:14] LABS: BASOPHILS ABSOLUTE AUTO 0.02 K/uL (0.00-0.20); BASOPHILS PERCENT AUTO 0.3 % (0.0-1.0); EOSINOPHILS ABSOLUTE AUTO 0.05 K/uL (0.00-0.45); EOSINOPHILS PERCENT AUTO 0.8 % (0.0-6.0); IMMATURE GRAN ABSOLUTE AUTO 0.01 K/uL (0.00-0.05); IMMATURE GRAN PERCENT AUTO 0.2 % (0.0-0.4); LYMPHOCYTES ABSOLUTE AUTO 1.82 K/uL (1.00-4.80); LYMPHOCYTES PERCENT AUTO 28.3 % (24.0-44.0); MEAN PLATELET VOLUME 8.9 fL (9.4-12.3); MONOCYTES ABSOLUTE AUTO 0.46 K/uL (0.00-0.80); MONOCYTES PERCENT AUTO 7.2 % (0.0-8.0); NEUTROPHILS ABSOLUTE AUTO 4.06 K/uL (1.80-7.70); NEUTROPHILS PERCENT AUTO 63.2 % (41.0-71.0); NRBC ABSOLUTE 0.00 K/uL (0.00-0.02); NRBC PERCENT 0.0 /100WBC (0.0-0.2); PLATELET COUNT,PLT 243 K/uL (150-400); RED BLOOD CELL COUNT 3.97 M/uL (4.10-5.30); WHITE BLOOD CELL COUNT,WBC 6.42 K/uL (3.9-11.3)
[2025-01-09 07:36] LABS: A/G RATIO 0.9 (0.9-1.6); ALANINE AMINOTRANSFERASE,ALT 47.0 IU/L (14-63); ASPARTATE AMNIOTRANSFERASE,AST 53.0 IU/L (15-37); BILIRUBIN TOTAL 1.1 mg/dL (0.2-1.0); BLOOD UREA NITROGEN,BUN 7.0 mg/dL (7.0-18.0); CARBON DIOXIDE,CO2 22.9 mmol/L (21.0-32.0); CHLORIDE,CL 103.0 mmol/L (98-107); CREATININE 0.7 mg/dL (0.6-1.0); EST CRCL DRUG DOSING (CG) 85.45 mL/min; GLUCOSE RANDOM 78.0 mg/dL (74-106); PHOSPHORUS 2.3 mg/dL (2.6-4.7); POTASSIUM,K 3.2 mmol/L (3.5-5.1); PROTEIN TOTAL,TP 5.8 g/dL (6.4-8.2); SODIUM,NA 138.0 mmol/L (136-145)
[2025-01-09 07:40] LABS: ESTIMATED GFR 116.0 mL/min (>60)
[2025-01-09] MEDS: Potassium Phosphates 15 MMOLE in Sodium Chloride 0.9% 250 ML IV STA (09:08)
[2025-01-09] MEDS: Ondansetron 4 MG/2 ML SDV IVPUSH PRN (09:21)
[2025-01-09] MEDS: Phosphorus #1 250 MG Tab PO ONE (09:42)
[2025-01-10 06:02] LABS: BASOPHILS ABSOLUTE AUTO 0.02 K/uL (0.00-0.20); BASOPHILS PERCENT AUTO 0.3 % (0.0-1.0); EOSINOPHILS ABSOLUTE AUTO 0.07 K/uL (0.00-0.45); EOSINOPHILS PERCENT AUTO 1.1 % (0.0-6.0); IMMATURE GRAN ABSOLUTE AUTO 0.02 K/uL (0.00-0.05); IMMATURE GRAN PERCENT AUTO 0.3 % (0.0-0.4); LYMPHOCYTES ABSOLUTE AUTO 1.27 K/uL (1.00-4.80); LYMPHOCYTES PERCENT AUTO 20.0 % (24.0-44.0); MEAN PLATELET VOLUME 9.1 fL (9.4-12.3); MONOCYTES ABSOLUTE AUTO 0.44 K/uL (0.00-0.80); MONOCYTES PERCENT AUTO 6.9 % (0.0-8.0); NEUTROPHILS ABSOLUTE AUTO 4.53 K/uL (1.80-7.70); NEUTROPHILS PERCENT AUTO 71.4 % (41.0-71.0); NRBC ABSOLUTE 0.00 K/uL (0.00-0.02); NRBC PERCENT 0.0 /100WBC (0.0-0.2); PLATELET COUNT,PLT 218 K/uL (150-400); RED BLOOD CELL COUNT 4.00 M/uL (4.10-5.30); WHITE BLOOD CELL COUNT,WBC 6.35 K/uL (3.9-11.3)
[2025-01-10 06:53] LABS: A/G RATIO 1.0 (0.9-1.6); ALANINE AMINOTRANSFERASE,ALT 33.0 IU/L (14-63); ASPARTATE AMNIOTRANSFERASE,AST 33.0 IU/L (15-37); BILIRUBIN TOTAL 0.7 mg/dL (0.2-1.0); BLOOD UREA NITROGEN,BUN 7.0 mg/dL (7.0-18.0); CARBON DIOXIDE,CO2 22.6 mmol/L (21.0-32.0); CHLORIDE,CL 103.0 mmol/L (98-107); CREATININE 0.7 mg/dL (0.6-1.0); EST CRCL DRUG DOSING (CG) 85.45 mL/min; GLUCOSE RANDOM 95.0 mg/dL (74-106); PHOSPHORUS 2.5 mg/dL (2.6-4.7); POTASSIUM,K 2.9 mmol/L (3.5-5.1); PROTEIN TOTAL,TP 5.9 g/dL (6.4-8.2); SODIUM,NA 137.0 mmol/L (136-145)
[2025-01-10 06:57] LABS: ESTIMATED GFR 116.0 mL/min (>60)
[2025-01-10 08:16] VITALS: BP 118/72; PULSE 71
== END 2025-01-10 09:00 | disposition left against medical advice (07) | DRG 770 ==
LOC: MW.ED 20:53 → MW.ICU 23:22 → MW.MS 01-10 03:51
PROVIDERS: ADMIT Internal Medicine; ATTEND Internal Medicine
PROC: HZ2ZZZZ Detoxification Services for Substance Abuse Treatment (ICD-10-PCS; principal; 2025-01-07)
DX: F10.139 Alcohol abuse with withdrawal, unspecified (principal); K86.1 Other chronic pancreatitis; F41.9 Anxiety disorder, unspecified; F19.90 Other psychoactive substance use, unspecified, uncomplicated; F32.A Depression, unspecified; E87.6 Hypokalemia; E83.39 Other disorders of phosphorus metabolism; Z88.8 Allergy status to other drugs, medicaments and biological substances; Z90.49 Acquired absence of other specified parts of digestive tract; Z98.890 Other specified postprocedural states; Z79.899 Other long term (current) drug therapy
CPT/HCPCS: 36415; 80048; 80053; 80305; 80307; 81001; 82550; 83690; 83735; 84100; 84703; 85025; 93005; 93010; 96361; 96374; 96376; 99285; 99285-25; A9270-GY; J2060; J2405; J3360; J3411; J3490; J7030; J7050

== ENCOUNTER 2025-01-10 11:18 | Emergency (ER) | payer BC ==
[2025-01-10 12:02] LABS: BASOPHILS ABSOLUTE AUTO 0.02 K/uL (0.00-0.20); BASOPHILS PERCENT AUTO 0.3 % (0.0-1.0); EOSINOPHILS ABSOLUTE AUTO 0.03 K/uL (0.00-0.45); EOSINOPHILS PERCENT AUTO 0.5 % (0.0-6.0); IMMATURE GRAN ABSOLUTE AUTO 0.01 K/uL (0.00-0.05); IMMATURE GRAN PERCENT AUTO 0.2 % (0.0-0.4); LYMPHOCYTES ABSOLUTE AUTO 0.88 K/uL (1.00-4.80); LYMPHOCYTES PERCENT AUTO 13.3 % (24.0-44.0); MEAN PLATELET VOLUME 9.2 fL (9.4-12.3); MONOCYTES ABSOLUTE AUTO 0.41 K/uL (0.00-0.80); MONOCYTES PERCENT AUTO 6.2 % (0.0-8.0); NEUTROPHILS ABSOLUTE AUTO 5.29 K/uL (1.80-7.70); NEUTROPHILS PERCENT AUTO 79.5 % (41.0-71.0); NRBC ABSOLUTE 0.00 K/uL (0.00-0.02); NRBC PERCENT 0.0 /100WBC (0.0-0.2); PLATELET COUNT,PLT 232 K/uL (150-400); RED BLOOD CELL COUNT 4.22 M/uL (4.10-5.30); WHITE BLOOD CELL COUNT,WBC 6.64 K/uL (3.9-11.3)
[2025-01-10] MEDS: Ondansetron 4 MG/2 ML SDV IVPUSH ONE (12:08)
[2025-01-10 12:27] LABS: A/G RATIO 0.9 (0.9-1.6); ALANINE AMINOTRANSFERASE,ALT 45.0 IU/L (14-63); ASPARTATE AMNIOTRANSFERASE,AST 31.0 IU/L (15-37); BILIRUBIN TOTAL 0.5 mg/dL (0.2-1.0); BLOOD UREA NITROGEN,BUN 4.0 mg/dL (7.0-18.0); CARBON DIOXIDE,CO2 20.5 mmol/L (21.0-32.0); CHLORIDE,CL 103.0 mmol/L (98-107); CREATININE 0.8 mg/dL (0.6-1.0); EST CRCL DRUG DOSING (CG) 92.76 mL/min; ETHANOL BLOOD MEDICAL 70.0 mg/dL; GLUCOSE RANDOM 93.0 mg/dL (74-106); POTASSIUM,K 2.9 mmol/L (3.5-5.1); PROTEIN TOTAL,TP 6.6 g/dL (6.4-8.2); SODIUM,NA 141.0 mmol/L (136-145)
[2025-01-10 12:33] LABS: ESTIMATED GFR 99.0 mL/min (>60)
[2025-01-10 14:04] LABS: AMPHETAMINES SCREEN, URINE NEGATIVE (CUTOFF=500); BUPRENORPHINE SCREEN,URINE NEGATIVE (CUTOFF=10); METHADONE SCREEN, URINE NEGATIVE (CUTOFF=200); METHAMPHETAMINES SCREEN, URINE NEGATIVE (CUTOFF=500); OXYCODONE SCREEN,URINE NEGATIVE (CUT0FF=100); PCP SCREEN,URINE NEGATIVE (CUTOFF=25); THC SCREEN,URINE 20 NG/ML NEGATIVE (CUTOFF=50)
[2025-01-10] MEDS: LORazepam 2 MG/ML SDV IVPUSH ONE (14:14)
[2025-01-10] MEDS: LORazepam 2 MG/ML SDV ONE (14:15)
[2025-01-10 15:48] VITALS: BP 115/82; PULSE 87
[2025-01-10] MEDS: Ondansetron 4 MG Tab.DIS PO ONE (15:57)
[2025-01-10] MEDS: Potassium Chloride 20 MEQ Tab.ER PO ONE (15:57)
== END 2025-01-10 17:00 | disposition home or self-care (01) ==
LOC: MW.ED 11:18
DX: F19.20 Other psychoactive substance dependence, uncomplicated (principal); F10.10 Alcohol abuse, uncomplicated; Z75.3 Unavailability and inaccessibility of health-care facilities; Z79.899 Other long term (current) drug therapy; Z88.8 Allergy status to other drugs, medicaments and biological substances
CPT/HCPCS: 36415; 70450; 80053; 80305; 80307; 83690; 83735; 85025; 96361; 96374; 96375; 99284; A9270; J2060; J2405; J7030; 99283